=== PATIENT | female | born 1985 | race Caucasian/White ===

== ENCOUNTER 2018-04-26 08:50 | Emergency (ER) | payer OTHER ==
[~2018-04-26] VITALS: Ht 167.6 cm; Wt 83.2 kg
[2018-04-26 09:22] LABS: HEMATOCRIT 39.1 % (36.0-46.0); HEMOGLOBIN 12.1 G/DL (11.9-15.5); MCH 23.6 PG (29.0-34.0); MCHC 30.9 G/DL (30.0-36.0); MCV 76.2 FL (83-99); PLATELET COUNT 376 K/uL (156-360); RBC DIS.WIDTH-CV 15.5 % (11.8-14.6); RBC DIS.WIDTH-SD 42.3 % (39-53); RED BLOOD COUNT 5.13 M/uL (3.80-5.20); WHITE BLOOD COUNT 10.3 K/uL (4.1-10.2)
[2018-04-26 09:33] LABS: ALBUMIN 4.4 g/dL (3.2-4.8); CHLORIDE 108 mEq/L (99-109); POTASSIUM 4.6 mEq/L (3.7-5.4); SODIUM 143 mEq/L (136-147)
[2018-04-26 09:36] LABS: GLUCOSE 87 mg/dL (70-99); TOTAL PROTEIN 7.4 g/dL (6.4-8.3)
[2018-04-26 09:38] LABS: TOTAL BILIRUBIN 0.4 mg/dL (0.0-1.0)
[2018-04-26 09:39] LABS: ALKALINE PHOSPHATASE 101 IU/L (3-129); CREATININE 1.1 mg/dL (0.6-1.3)
[2018-04-26 09:40] LABS: GFR ESTIMATE (CALCULATED) > 59 mL/min/; UREA NITROGEN (BUN) 11 mg/dL (9-23)
[2018-04-26 09:41] LABS: AST (GOT) 27 IU/L (2-34)
[2018-04-26 09:42] LABS: ALT (GPT) 28 IU/L (3-49)
[2018-04-26 09:48] LABS: QUANTITATIVE HCG < 4.0 MIU/ML
[2018-04-26 10:47] LABS: APPEARANCE SL.HAZY ((CLEAR)); BILIRUBIN NEGATIVE; BLOOD NEGATIVE; COLOR YELLOW ((YELLOW)); GLUCOSE (STRIP) NEGATIVE; KETONES NEGATIVE; LEUKOCYTES NEGATIVE; NITRITE NEGATIVE; PROTEIN (STRIP) NEGATIVE; SPECIFIC GRAVITY 1.009 (1.000-1.030); UROBILINOGEN 0.2 MG/DL (0.2-1.0)
[2018-04-26 10:55] LABS: BACTERIA RARE /HPF; EPITHELIAL CELLS RARE /HPF; MUCUS TRACE /LPF; RED BLOOD CELLS 0-5 /HPF (0-5); UCUL ADDED? NO; WHITE BLOOD CELLS 0-5 /HPF (0-5)
[2018-04-26] MEDS ORDERED: DOCUSATE SODIU100 MG PO (11:31)
[2018-04-26] MEDS ORDERED: MIRALAX255 GM PO (12:10)
[2018-04-26 12:19] VITALS: BP 126/83
== END 2018-04-26 12:20 | disposition home or self-care (01) ==
LOC: EME 08:50
DX: K59.00 Constipation, unspecified (principal); R10.32 Left lower quadrant pain; K92.2 Gastrointestinal hemorrhage, unspecified; K52.9 Noninfective gastroenteritis and colitis, unspecified; F41.9 Anxiety disorder, unspecified; F31.9 Bipolar disorder, unspecified
CPT/HCPCS: 74177; 80053; 81003; 84702; 85027; 99281; 99284; J7120